=== PATIENT | female | born 1975 | race Hispanic/Latino ===

== ENCOUNTER 2024-08-28 11:15 | Emergency (ER) | payer BC ==
[~2024-08-28] VITALS: Ht 167.6 cm; Wt 91.2 kg
[2024-08-28 17:03] VITALS: BP 115/60
--- NOTE | 2024-08-29 09:53 | CONS ---
[facility] [address] [place], [place] [address] Signed DATE OF CONSULTATION: 08/28/2024 TIME: 04:20 p.m. PROBLEM: Seroma, abdominal wall. CONSULTING PHYSICIAN: Prabha Guerrero MD REQUESTING PHYSICIAN: Dr. Hurley. HISTORY OF PRESENT ILLNESS: This 48-year-old [place] [facility] woman now lives in the [facility] and is to a person here as well. She lives in [place]. She underwent multiple plastic operations including a submental chin operation, bilateral breast reduction and an abdominoplasty in [place] by practice. This was approximately a month ago. She had two abdominal drains placed as would be typical as well as breast drains also. She was said to have an infection possibly of the incision of the abdominal wall that I do not know for sure. She was on antibiotics since operation up until two days ago. She went to [facility] to visit her daughter who is a general passenger agent following operation. She developed seromatous fluid in the abdominal area in the lower aspect after her bilateral inguinal type drains became dislodged prematurely. She tells me that her general passenger agent daughter used ultrasound technique and sterile technique to aspirate seromatous fluid. She did this on several occasions. The patient left from [facility] to return to [place] at this time. She noted that the swelling was increasing once again. She presented to the emergency room where she was thoroughly evaluated by Dr. Hurley. An ultrasound was performed, which showed an avascular fluid collection with dependent debris 16.2 x 8.9 x 3.0 cm superior to the incision scar of the low abdomen near the midline. I was consulted on that basis for further management. The patient has had no fever, chills, or other similar problem. She has had some desquamation of the inframammary fold on the right side related to her bilateral breast reduction. Electronically Signed By: PRABHA GUERRERO MD 08/29/24 0953 PATIENT NAME: SAMY LYNCH CONSULTATION DATE OF : 79 REPORT #: [id number] PHYSICIAN: PRABHA GUERRERO MD PCP: JOSELINE BARONE MD REPORT IS CONFIDENTIAL AND NOT TO BE RELEASED WITHOUT AUTHORIZATION [facility] [address] [place], [place] [address] Signed PHYSICAL EXAMINATION: GENERAL: She looks well. She is still moderately obese but pleasant and nontoxic in every way. Breast exam as previously noted. ABDOMEN: Shows the umbilical area to have minimal inflammatory changes and the skin overlying the abdominal wall to be quite viable. The incision itself has some chronic scarring and some erythematous change, but no sign of skin infection in any way. The wound is palpated and noted to be somewhat full consistent with seroma as identified by ultrasound. EXTREMITIES: Show no clubbing, cyanosis, or edema. 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 We aspirated by her daughter with ultrasound guidance while in [facility]. I do not believe that recurrent aspirations is the best approach at this point. A more appropriate approach would be a seroma cath or if necessary ultimately formal drain placement. A seroma cath would be most expedient at this time and I think a reasonable approach. The risks of seroma cath placement were reviewed with her, which include but are not limited to bleeding, infection, failure of the device and need for advanced or repeat intervention. She understands and wished to proceed. MD DARREN Timmons/MODL /[id number] cc: Gary Hurley MD Dr. Copies: GARY HURLEY MD ~ Electronically Signed By: PRABHA GUERRERO MD 08/29/24 0953 PATIENT NAME: SAMY LYNCH CONSULTATION DATE OF : 79 REPORT #: [id number] PHYSICIAN: PRABHA GUERRERO MD PCP: JOSELINE BARONE MD REPORT IS CONFIDENTIAL AND NOT TO BE RELEASED WITHOUT AUTHORIZATION
--- NOTE | 2024-08-31 13:15 | OR ---
[facility] [address] [place], [place] [address] Signed DATE OF OPERATION: 08/28/2024 SURGEON: Prabha Guerrero MD PREOPERATIVE DIAGNOSIS: Recurrent abdominal wall seroma following abdominoplasty greater than one month ago. POSTOPERATIVE DIAGNOSIS: Recurrent abdominal wall seroma following abdominoplasty greater than one month ago. PROCEDURE: Seroma catheter placement low abdominal wall. ANESTHESIA: 1% lidocaine with epinephrine. INDICATION: This is a 48-year-old [facility] woman, who underwent abdominoplasty in [place], [place] greater than a month ago with premature dislodgement of sub-flap drains. She has had recurrent aspiration of seromatous fluid performed by her daughter while in [facility] over the past two weeks. She presented to the emergency room upon return from [facility] with feelings that the seroma has recurred. Examination include an ultrasound confirming seromatous fluid 16.2 x 8.9 x 3.0 cm superior to the transverse pelvic incision. I have recommended a more persistent and continuous drainage approach to include a seroma catheter versus a more formal open operation. A seroma catheter may be all that is necessary to allow for complete removal of the fluid. The risk of bleeding, infection, recurrent fluid collection and of course failure of the seroma catheter were all reviewed with her. She understands and wished to proceed. FINDINGS: Reasonably clear seromatous fluid was withdrawn. Approximately 200 mL of fluid was withdrawn in total. A seroma catheter appears to be working quite well and was well secured to the abdominal wall. PROCEDURE IN DETAIL: In the semi recumbent position in the emergency room, the lower abdomen was prepared with Betadine solution. Using sterile technique including gloves, gowns, etc, the area was prepared with a Betadine based solution and draped sterilely. 1% lidocaine with epinephrine was injected below and above the transverse abdominoplasty incision. Using a seroma catheter after a small 11 blade incision in the area, the catheter was inserted Electronically Signed By: PRABHA GUERRERO MD 08/31/24 1315 PATIENT NAME: SAMY LYNCH OPERATIVE REPORT DATE OF : 79 REPORT #: [id number] PHYSICIAN: PRABHA GUERRERO MD PCP: JOSELINE BARONE MD REPORT IS CONFIDENTIAL AND NOT TO BE RELEASED WITHOUT AUTHORIZATION [facility] [address] [place], [place] [address] Signed into the space previously identified by ultrasound. Aspiration showed seromatous fluid without evidence of infection, purulence, or other finding, though it was not crystal clear, it was reasonably clear. The seroma catheter was then inserted fully into the site. Aspiration showed it to be contiguous with the offending collection. The catheter secured the skin with 3-0 nylon suture. A drainage catheter was then applied to the angiocatheter and ultimately to bulb device. were withdrawn in aggregate. Sterile OpSite type dressing was then applied to secure more fully the catheter and the apparatus. She tolerated the procedure well. PLAN: She will go home today and I will plan to see her in my office on next week at 4:00 p.m. If she has problems in the meantime, she will have our information to contact us sooner. Prabha Guerrero MD JM/MODL /[id number] cc: Dr. Gary Hurley MD Copies: GARY HURLEY MD ~ Electronically Signed By: PRABHA GUERRERO MD 08/31/24 1315 PATIENT NAME: SAMY LYNCH OPERATIVE REPORT DATE OF : 79 REPORT #: [id number] PHYSICIAN: PRABHA GUERRERO MD PCP: JOSELINE BARONE MD REPORT IS CONFIDENTIAL AND NOT TO BE RELEASED WITHOUT AUTHORIZATION
== END 2024-08-28 17:03 | disposition home or self-care (01) ==
LOC: ED 11:15
DX: L76.33 Postprocedural seroma of skin and subcutaneous tissue following a dermatologic procedure (principal)
CPT/HCPCS: 76705; 99283-25